=== PATIENT | male | born 1975 | race African-American/Black ===

== ENCOUNTER 2021-07-29 17:30 | Emergency (ER) | payer BC, OTHER ==
[2021-07-29] MEDS ORDERED: IBUPROFEN 400 MG TAB ONE (18:33)
[2021-07-29 20:10] LABS: SARS-COV-2 RT PCR POSITIVE (NEGATIVE)
--- NOTE | 2021-07-29 20:13 | ER ---
Nurse's Notes [facility] Name: Yasmany Alarcon Age: 45 yrs Sex: Male : 1975 Arrival Date: 07/29/2021 Time: 17:37 Bed 5 Private MD: Diagnosis: SARS-associated coronavirus as the cause of diseases classified elsewhere Presentation: 07/29 17:40 Chief complaint: Patient states: Slight cough began yesterday. Today has chills, low ll1 grade fever, body aches, congestion, and diarrhea. Coronavirus screen: Vaccine status: Patient reports receiving the 2nd dose of the covid vaccine. Client denies travel out of the [place] in the last 14 days. chills, congestion, cough unrelated to allergies, diarrhea, fatigue, fever, headache, muscle pain, runny nose, loss of taste or smell, Client presents with at least one sign or symptom that may indicate coronavirus-19. Standard/surgical mask placed on the client. Ebola Screen: Patient denies travel to an Ebola-affected area in the 21 days before illness onset. Initial Sepsis Screen: Does the patient meet any 2 criteria? HR > 90 bpm. No. Patient's initial sepsis screen is negative. Does the patient have a suspected source of infection? Yes: Productive cough/pneumonia. Risk Assessment: Do you want to hurt yourself or someone else? Patient reports no desire to harm self or others. Onset of symptoms was July 28, 2021. 17:40 Method Of Arrival: Ambulatory ll1 17:40 Acuity: VAZQUEZ 4 ll1 Triage Assessment: 17:45 General: Appears in no apparent distress. uncomfortable, Behavior is cooperative, bp appropriate for age, anxious. Pain: Denies pain. EENT: Reports nasal congestion. Neuro: Level of Consciousness is awake, alert, obeys commands, Oriented to Appropriate for age. Cardiovascular: No deficits noted. Respiratory: Reports cough that is. GI: No signs and/or symptoms were reported involving the gastrointestinal system. : No signs and/or symptoms were reported regarding the genitourinary system. Derm: No deficits noted. Musculoskeletal: No deficits noted. Historical: - Allergies: 17:42 No Known Drug Allergies; ll1 - PMHx: 17:42 borderline HTN; ll1 - PSHx: 17:42 Appendectomy; ll1 - Immunization history:: Client reports receiving the 2nd dose of the Covid vaccine, Flu vaccine is up to date. - Social history:: Smoking status: Patient reports the use of cigarette tobacco products, smokes one-half pack cigarettes per day. Screenin:45 Abuse screen: Denies threats or abuse. Denies injuries from another. Nutritional bp screening: No deficits noted. Tuberculosis screening: No symptoms or risk factors identified. Fall Risk None identified. Assessment: 17:45 General: SEE TRIAGE NOTE. bp Vital Signs: 17:40 BP 142 / 101; Pulse 100; Resp 20; Temp 100.0; Pulse Ox 97% on R/A; Weight 106.59 kg; ll1 Height 6 ft. 2 in. (187.96 cm); Pain 5/10; 20:18 BP 133 / 87; Pulse 93; Resp 18; Temp 100.9; Pulse Ox 98% ; Pain 6/10; sv1 17:40 Body Mass Index 30.17 (106.59 kg, 187.96 cm) ll1 ED Course: 17:37 Patient arrived in ED. ds1 17:42 Triage completed. ll1 17:42 Arm band placed on. ll1 17:45 Patient has correct armband on for positive identification. Bed in low position. Call bp light in reach. Side rails up X2. 17:47 Jonathon Cavazos PA is PHCP. cp 17:47 Concepcion Palacios MD is Attending Physician. cp 18:17 Jaya Leone, RN is Primary Nurse. bp 19:18 Primary Nurse role handed off by Jaya Leone RN mw2 20:17 Orion Watt, NINA is Primary Nurse. sv1 20:19 No provider procedures requiring assistance completed. Patient did not have IV access sv1 during this emergency room visit. Administered Medications: 18:30 Drug: Ibuprofen 800 mg Route: PO; bp Outcome: 20:11 Discharge ordered by MD. cp 20:19 Discharged to home ambulatory. sv1 20:19 Condition: stable 20:19 Discharge instructions given to patient. 20:19 Patient left the ED. sv1 Signatures: Duyen Priest ds1 Jonathon Cavazos PA PA cp Jaya Leone, NINA RN bp Turner Laws mw2 Bethany Lamar RN RN 1 Villicano, Orion, RN RN sv1
--- NOTE | 2021-07-29 20:13 | EDPHYS ---
Physician Documentation [facility] Name: Yasmany Alarcon Age: 45 yrs Sex: Male : 1975 Arrival Date: 07/29/2021 Time: 17:37 Bed 5 Private MD: ED Physician Concepcion Palacios HPI: 07/29 18:25 This 45 yrs old Black Male presents to ER via Ambulatory with complaints of Chills. cp 18:25 The patient or guardian reports cough, that is intermittent. cp 18:25 Onset: The symptoms/episode began/occurred yesterday. Associated signs and symptoms: cp Pertinent positives: fever, sore throat, chills, body aches. Severity of symptoms: in the emergency department the symptoms are unchanged despite home interventions. Historical: - Allergies: 17:42 No Known Drug Allergies; ll1 - PMHx: 17:42 borderline HTN; ll1 - PSHx: 17:42 Appendectomy; ll1 - Immunization history:: Client reports receiving the 2nd dose of the Covid vaccine, Flu vaccine is up to date. - Social history:: Smoking status: Patient reports the use of cigarette tobacco products, smokes one-half pack cigarettes per day. ROS: 18:30 Constitutional: Positive for body aches, chills, fever. cp 18:30 Eyes: Negative for injury, pain, redness, and discharge. cp 18:30 ENT: Positive for sore throat, Negative for drainage from ear(s), ear pain, difficulty swallowing, difficulty handling secretions. 18:30 Cardiovascular: Negative for chest pain. 18:30 Respiratory: Positive for cough, Negative for shortness of breath, wheezing. 18:30 Abdomen/GI: Negative for vomiting, diarrhea. 18:30 Neuro: Negative for altered mental status, weakness. 18:30 All other systems are negative. Exam: 18:33 Constitutional: The patient appears in no acute distress, alert, awake, non-toxic, well cp developed, well nourished, febrile. 18:33 Head/Face: Normocephalic, atraumatic. cp 18:33 Eyes: Periorbital structures: appear normal, Conjunctiva: normal, no exudate, no cp injection, Sclera: no appreciated abnormality, Lids and lashes: appear normal, bilaterally. 18:33 ENT: External ear(s): are unremarkable, Ear canal(s): are normal, TM's: dullness, cp bilaterally, Nose: is normal, Mouth: Lips: moist, Oral mucosa: moist, Posterior pharynx: Tonsils: no enlargement, no exudate, erythema, that is mild. 18:33 Neck: ROM/movement: is normal, is supple, no meningismus, no nuchal rigidity. 18:33 Chest/axilla: Inspection: normal. 18:33 Cardiovascular: Rate: tachycardic, Rhythm: regular. 18:33 Respiratory: the patient does not display signs of respiratory distress, Respirations: normal, no use of accessory muscles, no retractions, labored breathing, is not present, Breath sounds: are clear throughout, no decreased breath sounds, no stridor, no wheezing. 18:33 Abdomen/GI: Inspection: abdomen appears normal, Palpation: abdomen is soft and non-tender, in all quadrants. Vital Signs: 17:40 BP 142 / 101; Pulse 100; Resp 20; Temp 100.0; Pulse Ox 97% on R/A; Weight 106.59 kg; ll1 Height 6 ft. 2 in. (187.96 cm); Pain 5/10; 20:18 BP 133 / 87; Pulse 93; Resp 18; Temp 100.9; Pulse Ox 98% ; Pain 6/10; sv1 17:40 Body Mass Index 30.17 (106.59 kg, 187.96 cm) ll1 MDM: 17:56 Patient medically screened. cp 20:10 Data reviewed: vital signs, nurses notes, lab test result(s). cp 20:10 Counseling: I had a detailed discussion with the patient and/or guardian regarding: the cp historical points, exam findings, and any diagnostic results supporting the discharge/admit diagnosis, lab results, to return to the emergency department if symptoms worsen or persist or if there are any questions or concerns that arise at home. 07/29 18:17 Order name: COVID-19/FLU A+B/RSV (Document "Date of Onset" if Symptomatic); Complete cp Time: 18:13 07/29 18:17 Order name: Strep; Complete Time: 18:13 cp 07/29 19:42 Order name: Throat Culture EDMS Administered Medications: 18:30 Drug: Ibuprofen 800 mg Route: PO; bp Disposition Summary: 07/29/21 20:11 Discharge Ordered Location: Home cp Problem: new cp Symptoms: have improved cp Condition: Stable cp Diagnosis - SARS-associated coronavirus as the cause of diseases classified elsewhere cp Followup: cp - With: Private Physician - When: 2 - 3 days - Reason: Worsening of condition Discharge Instructions: - Discharge Summary Sheet cp - Aspirin and Your Heart cp - COVID-19 cp - Things to Know about the COVID-19 Pandemic - [facility] cp - 10 Things You Can Do to Manage Your COVID-19 Symptoms at Home - [facility] cp - COVID-19: Quarantine vs. Isolation - [facility] cp - Prevent the Spread of COVID-19 if You Are Sick - [facility] cp Forms: - Medication Reconciliation Form cp - Thank You Letter cp - Antibiotic Education cp - Prescription Opioid Use cp Prescriptions: - Ibuprofen 800 mg Oral Tablet - take 1 tablet by ORAL route every 8 hours As needed take with food; 30 tablet; cp Refills: 0, Product Selection Permitted Signatures: Dispatcher [employer] EDJonathon Curry PA PA cp Jaya Leone RN RN Bethany Cardenas RN RN ll1
[2021-07-29 20:30] VITALS: BP 133/87; TEMP 100.9; O2SAT 98
== END 2021-07-29 20:19 | disposition home or self-care (01) ==
LOC: ER 17:30
DX: U07.1 COVID-19 (principal); F17.210 Nicotine dependence, cigarettes, uncomplicated
CPT/HCPCS: 87081; 0241U; 99283